=== PATIENT | male | born 1950 | race Caucasian/White ===

== ENCOUNTER → 2021-08-27 | Outpatient (CLI) | payer OTHER ==
--- NOTE | 2021-08-27 08:45 | CT ---
EXAMINATION TYPE: CT chest wo con DATE OF EXAM: 08/27/2021 COMPARISON: NONE HISTORY: Swelling to Lt scapula area, localized lump and/or mass. CT DLP: 552 mGycm. Automated Exposure Control for Dose Reduction was Utilized. TECHNIQUE: CT scan of the thorax is performed without IV contrast. FINDINGS: LUNGS: The lungs are grossly clear, there is no concerning greater than 5 mm noncalcified parenchymal mass or nodule identified. There is no pleural effusion or pneumothorax seen. The tracheobronchia l tree is patent. MEDIASTINUM: Lack of IV contrast is noted to limit evaluation for mediastinal and especially hilar ad enopathy. There are no definitive greater than 1 cm hilar or mediastinal lymph nodes. No cardiomega ly or pericardial effusion is seen. Moderate coronary artery calcification is present. OTHER: Single punctate calcification in the posterior spleen. Mild to moderate multilevel spurring in the thoracic spine. Corresponding to clinical concern there is oval lesion posterior to the scapula measuring 9.5 cm gunn sversely by 3.0 cm AP diameter by nearly 9.0 cm craniocaudal diameter axial image 8 and coronal image 79. This is isodense to fat with few thin soft tissue septa. Findings favor a large lipoma. Local ma ss effect is noted on the posterior scapular muscles pushed anteriorly. IMPRESSION: As above. Subcutaneous 9.0 cm lesion long axis favors benign lipoma but due to size in lo topher mass effect and atypical lipomatous tumor and even low-grade liposarcoma aren't entirely excluded . Advise musculoskeletal oncology referral.
== END | disposition home or self-care (01) ==
LOC: RADCTMAIN 06:56
DX: I25.10 Atherosclerotic heart disease of native coronary artery without angina pectoris (principal); R22.2 Localized swelling, mass and lump, trunk
CPT/HCPCS: 71250